=== PATIENT | male | born 1995 | race African-American/Black ===

== ENCOUNTER 2020-01-27 22:08 | Emergency (ER) | payer SELFPAY ==
[~2020-01-27] VITALS: Ht 172.7 cm; Wt 102.1 kg
[~2020-01-27 22:08] MED LIST: ALBUTEROL SULF8.5 GM INH; BENADRYL25 MG PO; IBUPROFEN800 MG PO; POLYTRIM OP SOL10 ML OPHTHALM; PREDNISONE20 MG ORAL; PRILOSEC40 MG PO
--- NOTE | 2020-01-27 22:17 | NUR ---
ED Nurse Note: Pt ambulated to ED from home needing medical clearance for his [employer] application. Pt has had a hx of asthma but has not had to use his inhaler for about 5yrs. VSS, denies any symptoms. PT is A&Ox4, ERMD at bedside
[2020-01-27 22:19] VITALS: BP 128/78
--- NOTE | 2020-01-27 22:24 | Emergency Room Report ---
History of Present Illness General Chief Complaint: Medical Clearance Source: Patient Present Illness HPI This a 24-year-old male who had a history of asthma but has not used his inhaler for over 5 years. He presents with chief complaint of a medical clearance. Patient is applying to the [employer]. The doctor there is that he need medical clearance from his asthma. Told to go to the ER or see his primary care doctor. Patient has no primary care doctor. Patient has no issue. No pulmonary issue. No cough or congestion. No fever or chills. Allergies: Coded Allergies: No Known Allergies (Unverified , 08/08/12) COVID-19 Screening Contact w/high risk pt: No Experienced COVID-19 symptoms?: No COVID-19 Testing performed MOLD BUILDER: No Patient History Past Medical History: see triage record, old chart reviewed, asthma Past Surgical History: none Pertinent Family History: none Social History: Denies: smoking Immunizations: other Reviewed Nursing Documentation: PMH: Agreed; PSxH: Agreed Nursing Documentation-PMH Hx Asthma: Yes Review of Systems Eye: Denies: eye pain, blurred vision ENT: Denies: ear pain, nose congestion, throat swelling Respiratory: Denies: cough, shortness of breath Cardiovascular: Denies: chest pain, palpitations Gastrointestinal: Denies: abdominal pain, diarrhea, nausea, vomiting Musculoskeletal: Denies: back pain, joint pain Skin: Denies: rash Neurological: Denies: headache, numbness Endocrine: Denies: increased thirst, increased urine Hematologic/Lymphatic: Denies: easy bruising All Other Systems: negative except mentioned in HPI Physical Exam Vital Signs Date Time Temp Pulse Resp B/P (MAP) Pulse Ox O2 Delivery O2 Flow Rate FiO2 01/27/20 22:10 98.4 62 19 128/78 (95) 100 Room Air Vitals normal Sp02 EP Interpretation: reviewed, normal General Appearance: well appearing, no apparent distress, alert Head: normocephalic, atraumatic Eyes: bilateral eye PERRL, bilateral eye EOMI ENT: hearing grossly normal, normal pharynx Neck: full range of motion, supple, no meningismus Respiratory: chest non-tender, lungs clear, normal breath sounds Cardiovascular #1: regular rate, rhythm, no murmur Gastrointestinal: normal bowel sounds, non tender, no mass, no organomegaly, no bruit, non-distended Musculoskeletal: back normal, normal range of motion, gait/station normal Psychiatric: mood/affect normal Medical Decision Making Diagnostic Impression: Primary Impression: General medical examination ER Course For screening exam. He has no complaint. Lungs are clear. Oxygenation her percent. He is in no rest or distress. I see no issue with his asthma. Last Vital Signs Date Time Temp Pulse Resp B/P (MAP) Pulse Ox O2 Delivery O2 Flow Rate FiO2 01/27/20 22:10 98.4 62 19 128/78 (95) 100 Room Air Status: unchanged Disposition: HOME, SELF-CARE Condition: Stable Additional Instructions: Follow-up with your doctor as needed. At this moment in time, there is no issue with your asthma. Return if symptoms worsen. Izaiah Steinberg MD Jan 27, 2020 22:24
[2020-01-27 22:25] VITALS: BP 128/78
--- NOTE | 2020-01-27 22:25 | NUR ---
ER DISCHARGE NOTE: Patient is cleared to be discharged per ERMD, pt is aox4, on room air, with stable vital signs. pt id band removed. pt is able to ambulate with steady gait. pt took all belongings. pt given medical clearance for [employer] as needed.
== END 2020-01-27 22:25 | disposition home or self-care (01) ==
LOC: EMR 22:20
DX: J45.909 Unspecified asthma, uncomplicated (principal)
CPT/HCPCS: 99281